=== PATIENT | female | born 1970 | race Caucasian/White ===

== ENCOUNTER 2016-12-28 09:22 | Inpatient (IN) | payer BC ==
[2016-12-20 10:52] LABS: HEMATOCRIT 40.8 % (36.0-48.0); HEMOGLOBIN 13.9 g/dL (12.0-16.0)
[2016-12-20 11:04] LABS: BUN (BLOOD UREA NITROGEN) 7 MG/DL (6-23); CHLORIDE, SERUM 102 MMOL/L (96-112); CO2 (CARBON DIOXIDE) 28 MMOL/L (24-34); CREATININE 0.72 MG/DL (0.55-1.02); GFR AFRICAN AMERICAN 116 ML/MIN (>=60); GFR NON AFRICAN AMERICAN 100 ML/MIN (>=60); GLUCOSE, SERUM 124 MG/DL (60-99); SODIUM, SERUM 140 MMOL/L (135-148)
--- NOTE | ~2016-12-28 | OP ---
Record Of Operation [facility] [address] [place]. [address] NAME: JOSEF OSBORN : [birth year] STATUS : ADM IN PAT#: [id number] AGE: 46 ADM/REG DATE : 12/28/16 MR#: [id number] REPORT SERV DATE: 12/28/16 DICTATED BY: CHARLES GALLAGHER DATE: 12/28/16 REPORT STATUS : Draft TRANSCRIBED BY: MODL DATE: 12/28/16 DATE OF PROCEDURE: 12/28/2016 PREOPERATIVE DIAGNOSIS: Cervical spondylotic myelopathy, cervical radiculopathy, C4-C7 disk disease and stenosis with spinal cord and nerve root impingement. POSTOPERATIVE DIAGNOSIS: Cervical spondylotic myelopathy, cervical radiculopathy, C4-C7 disk disease and stenosis with spinal cord and nerve root impingement. PROCEDURE: Two-stage procedure. Stage II: 1. Anterior cervical diskectomy and fusion, C4-5, C5-6, C6-7, C7-T1. 2. Placement of Medtronic PEEK interbody spacer, C4-5, C5-6, C6-7, C7-T1. 3. Allograft bone matrix. 4. Neuromonitoring. 5. Anterior cervical plate from Medtronic, C4-T1. 6. Operative microscope. Stage II: 1. C4-T1 laminectomy and bilateral foraminotomy, decompression of the C5-T1 nerve roots bilaterally. 2. C4-T1 posterolateral fusion bilaterally. 3. C4-T1 posterior segmental spinal instrumentation using Medtronic pedicle and lateral mass screws. 4. Local morcellized autograft and allograft bone matrix. 5. Neuromonitoring. 6. Intraoperative O-arm CT scan with computer navigation. SURGEON: Charles Gallagher DO. ANESTHESIA: General. ESTIMATED BLOOD LOSS: 100 mL. COMPLICATIONS: None. INDICATIONS: The patient is a 46-year-old with intractable neck and arm pain, upper extremity weakness, progressive signs of myelopathy, failed conservative treatment. After discussion of risks and benefits and prolonged neurologic decline, the patient elected to proceed with surgical intervention. PROCEDURE IN DETAIL: I identified the patient in the holding area. Consent was obtained. Went to the operating room. Underwent general anesthesia with endotracheal intubation. Prepped and draped in the usual sterile fashion. Operative safety pause was performed, and then we proceeded with surgery. An oblique incision was made over the left side of the neck, taken down to the anterior aspect of the spine. Longus colli elevated. Self- Record Of Operation [place] [address] [place]. [address] NAME: JOSEF OSBORN : [birth year] STATUS : ADM IN PAT#: [id number] AGE: 46 ADM/REG DATE : 12/28/16 MR#: [id number] REPORT SERV DATE: 12/28/16 DICTATED BY: CHARLES GALLAGHER DATE: 12/28/16 REPORT STATUS : Draft TRANSCRIBED BY: JOSE MARTIN DATE: 12/28/16 retaining retractors were placed. A Agra pin was placed and lateral fluoroscopic image used to verify operative level. Distraction was applied across the C4-C5 level. Operative microscope was brought in. A knife was used to perform an annulotomy. Free disk material removed with pituitary. Anterior osteophytes were removed with Kerrison. Posterior osteophytes and uncinate processes taken down with a zuleika bur foraminotomies performed with Kerrison. Endplates prepared with curettes, rasp, and a cutting bur. Trial spacers implanted, then Medtronic PEEK interbody spacer with allograft bone matrix placed at C4-C5. This was repeated again at C5-6, C6-7, and C7-T1. Agra pins were removed. Anterior cervical plate from Medtronic was placed from C4-T1. Screws were placed, final tightened. Locking mechanism engaged. Final AP and lateral images obtained. Irrigation performed. Hemostasis achieved. Subfascial drain placed. Layered closure was performed. Sterile dressings applied. The patient returned to the prone position, prepped and draped for stage II. Midline longitudinal incision was made at C4-T1, taken down to the fascial layer. Paraspinous muscles periosteally elevated. Self-retaining retractors were placed. O-arm registration frame was placed on spinous process. O-arm was brought in for intraoperative CT scan. Computer registration materials were verified under computer guidance. Pedicle and lateral mass screws from Medtronic were placed from C4-T1 bilaterally. The O-arm was brought back in to verify good placement of instrumentation. High-speed bur was used to create a trough in the lamina at C4-T1. Final cut through was made with a zuleika bur. Kerrison removed underlying ligamentum flavum. Lamina removed en bloc and used for bone graft. Foraminotomies performed from C4-T1 freeing the C5-T1 nerve roots bilaterally. Rods were cut and contoured to appropriate shape and length, placed over the screws from C4-T1. Set screws were placed and final tightened. A high-speed decorticating bur was used to decorticate the remaining bony surfaces at C4-T1. Irrigation performed. Hemostasis achieved. Local morcellized autograft and allograft bone matrix packed over the decorticated surfaces at C4-T1 bilaterally. Subfascial drain placed. Layered closure was performed. A gram of vancomycin powder sprinkled over the wound before closure. Sterile dressings applied. The patient awoke and extubated and taken to the recovery room in stable condition. OPERATIVE FINDING: Severe stenosis and disk disease C4-T1, no sustained neuromonitoring alerts. JIGNA/MODL Chalres Gallagher DO / [id number] CC: Charles Gallagher DO
--- NOTE | ~2016-12-28 | DS ---
Discharge Summary [facility] [address] [place]. [address] NAME: JOSEF OSBORN : [birth year] STATUS : DIS IN PAT#: [id number] AGE: 46 ADM/REG DATE : 12/28/16 MR#: [id number] REPORT SERV DATE: 01/09/17 DICTATED BY: CHARLES GALLAGHER DATE: 01/09/17 REPORT STATUS : Draft TRANSCRIBED BY: JOSE MARTIN DATE: 01/09/17 Data Collection from hospitalization DISCHARGE DIAGNOSES: 1. Cervical spondylotic myelopathy. 2. Cervical radiculopathy. 3. C4-C7 disk disease and stenosis with spinal cord and nerve root impingement. 4. Hypertension. 5. Anxiety and depression. 6. Hypercholesterolemia. 7. Gastric reflux. 8. Memory loss. 9. Tobacco use. CONSULTATIONS: None. PROCEDURES PERFORMED: Two-stage procedure. Stage I - anterior cervical diskectomy and fusion C4-C5, C5-C6, C6-C7, and C7-T1; placement of Medtronic PEEK interbody spacer C4-C5, C5-C6, C6-C7, and C7-T1; allograft bone matrix; neuromonitoring; anterior cervical plate from Medtronic C4-T1; operative microscope. Stage II - C4-T1 laminectomy and bilateral foraminotomy, decompression of the C5-T1 nerve roots bilaterally, C4-T1 posterolateral fusion bilaterally, C4-T1 posterior segmental spinal instrumentation using Medtronic pedicle and lateral mass screws, local morselized autograft and allograft bone matrix, neuromonitoring, intraoperative O-arm CT scan with computer navigation on 12/28/2016. PATHOLOGY: ( ). CONDITION AT DISCHARGE: Stable. DISPOSITION: The patient was discharged home on a mechanical soft diet with activities as instructed. She would follow up with me on 01/11/2017. HOSPITAL COURSE: This is a 46-year-old female who had intractable neck pain and right upper extremity pain with progressive problems with dropping objects and worsening balance. She has had multiple falls. Her legs would give out. She has cervical spondylotic myelopathy as well as cervical radiculopathy, C4-C7 disk disease and stenosis with spinal cord and nerve root impingement. Treatment options were discussed and it was elected to proceed with surgical intervention. She was admitted to the hospital for further evaluation and treatment. Upon admission, she was taken to the operating room where she underwent the above-mentioned procedure. She tolerated this well, and there were no complications. On postop day #1, her neck was soft. She was going to be transferred to the floor. She was stable neurologically. The ROBOT TECHNICIAN and Diaz catheter were going to be discontinued. On 12/30/2016, her pain was controlled. The drain was removed. Over the next couple of days, she continued to do well. She did complain of some pain. Discharge planning was performed. She remained on her metoprolol, trazodone, Prozac, and MS Contin. Blood pressure was stable. Discharge planning was performed. On 01/01/2017, discharge instructions were Discharge Summary [address] [address] NAME: JOSEF OSBORN : [birth year] STATUS : DIS IN PAT#: [id number] AGE: 46 ADM/REG DATE : 12/28/16 MR#: [id number] REPORT SERV DATE: 01/09/17 DICTATED BY: CHARLES GALLAGHER DATE: 01/09/17 REPORT STATUS : Draft TRANSCRIBED BY: JOSE MARTIN DATE: 01/09/17 given. Due to her improved and stable condition, she was discharged home with the above- stated instructions. Information collected by: Jazz Feliciano I submit the above information as my discharge summary. SAÚL/JOSE MARTIN Charles Gallagher DO / [id number] CC: DO Ta David M.D.
--- NOTE | ~2016-12-28 | PREOPHP ---
PreOp History and Physical [place] [id number] [facility] [place]. [address] NAME: JOSEF OSBORN : [birth year] STATUS : ADM IN [facility]#: [id number] AGE: 46 ADM/REG DATE : 12/28/16 MR#: [id number] REPORT SERV DATE: 12/28/16 DICTATED BY: CHARLES ANNE DATE: 12/28/16 REPORT STATUS : Draft TRANSCRIBED BY: JOSE MARTIN DATE: 12/28/16 CHIEF COMPLAINT: Neck pain. HISTORY OF PRESENT ILLNESS: The patient is a 46-year-old with intractable neck pain and right upper extremity pain with progressive problems with dropping objects and worsening balance. She has had multiple falls. Her legs will give out. After discussion of risks and benefits and progressive neurologic decline, she elected to proceed with surgical intervention. REVIEW OF SYSTEMS: She denies chest pain, shortness of breath, and bowel or bladder changes. ALLERGIES: DENIED. HOME MEDICATIONS: Include Valium, dicyclomine, fluoxetine, methylprednisolone, metoprolol, morphine, naproxen, omeprazole, Percocet, potassium, promethazine, tizanidine, trazodone, and venlafaxine. FAMILY HISTORY: Noncontributory. PAST MEDICAL HISTORY: Anxiety, hypertension, depression, high cholesterol, memory loss, and gastric reflux. PHYSICAL EXAMINATION: VITAL SIGNS: Height 5 feet 6 inches, weight 173, BMI 27.9. GENERAL: The patient is healthy appearing, no acute distress. PSYCHIATRIC: Alert and oriented x3. Normal mood and affect. Gait is somewhat unsteady. VASCULAR: No extremity swelling. SPINE: Decreased cervical motion. HEART: Regular rate and rhythm. LUNGS: Clear to auscultation. ABDOMEN: Soft, nontender, and nondistended. Good bowel sounds. BREASTS AND RECTAL: Both deferred. NEUROLOGIC: Strength is 4/5 for bilateral triceps and intrinsics. Remaining motor strength 5/5. IMAGING: I have reviewed the MRI scan, it does show C4-T1 disc disease and stenosis with spinal cord and nerve root compression. ASSESSMENT: C4-T1 disc disease and stenosis with cord and nerve compression, cervical radiculopathy, cervical myelopathy, failed conservative treatment including injections and physical therapy and pain management. After discussion of risks and benefits, the patient elects to proceed with surgical intervention. Consent was obtained. All questions were answered. She is ready to proceed. PreOp History and Physical [address] [facility] [place] [address] NAME: JOSEF OSBORN : [birth year] STATUS : ADM IN [facility]#: [id number] AGE: 46 ADM/REG DATE : 12/28/16 MR#: [id number] REPORT SERV DATE: 12/28/16 DICTATED BY: CHARLES ANNE DATE: 12/28/16 REPORT STATUS : Draft TRANSCRIBED BY: JOSE MARTIN DATE: 12/28/16 JIGNA/JOSE MARTIN Charles Anne DO / [id number] CC: DO Ta David M.D.
[~2016-12-28 09:22] MED LIST: CYANO1000T PO; LOP50 PO; MSCONT15 PO; PR25 PO; PRILOSEC40 MG PO; PROZAC PO; TRAZODONE150 MG PO; V5 PO; ZANAFLEX 4 MG TA4 MG PO
[2016-12-29 05:32] LABS: POTASSIUM, SERUM 3.9 MMOL/L (3.5-5.3)
[2017-01-01 04:52] LABS: BASOPHILS 0.1 %; BASOPHILS ABSOLUTE 0.02 10/3/uL (0.0-0.16); EOSINOPHILS 1.2 %; HEMATOCRIT 38.7 % (36.0-48.0); IMMATURE GRANULOCYTES 0.4 %; IMMATURE GRANULOCYTES ABSOLUTE 0.06 10/3/uL (0.0-0.11); LYMPHOCYTES 18.9 %; LYMPHOCYTES ABSOLUTE 3.07 10/3/uL (0.67-4.30); MEAN CORPUS HGB CONC 33.6 g/dL (32.0-36.0); MEAN CORPUSCULAR HEMOGLOB 30.9 pg (26.0-34.0); MEAN CORPUSCULAR VOLUME 91.9 fL (80-100); MEAN PLATELET VOLUME 11.1 fL (9.2-13.0); MONOCYTES 9.3 %; MONOCYTES ABSOLUTE 1.51 10/3/uL (0.21-1.20); NEUTROPHILS 70.1 %; NEUTROPHILS ABSOLUTE 11.38 10/3/uL (2.02-8.40); PLATELET COUNT 275 10/3/uL (150-400); RBC DISTRIBUTION WIDTH 13.7 % (12.0-16.0); RED CELL COUNT 4.21 10/6/uL (4.0-5.6); WHITE BLOOD CELLS 16.2 10/3/uL (4.5-10.5)
[2017-01-01 04:53] LABS: MANUAL DIFF NO %
[2017-01-01 05:03] LABS: CALCIUM, SERUM 8.8 MG/DL (8.5-10.4); CHLORIDE, SERUM 98 MMOL/L (96-112); CO2 (CARBON DIOXIDE) 30 MMOL/L (24-34); CREATININE 0.58 MG/DL (0.55-1.02); GFR AFRICAN AMERICAN 128 ML/MIN (>=60); GFR NON AFRICAN AMERICAN 111 ML/MIN (>=60); GLUCOSE, SERUM 112 MG/DL (60-99); POTASSIUM, SERUM 3.7 MMOL/L (3.5-5.3); SODIUM, SERUM 139 MMOL/L (135-148)
[2017-01-01 05:06] LABS: BUN (BLOOD UREA NITROGEN) 11 MG/DL (6-23)
[2017-01-01] MEDS ORDERED: PCET PO (10:31)
[2017-01-01] MEDS ORDERED: ZANAFLEX 4 MG TA4 MG PO (10:32)
== END 2017-01-01 13:02 | disposition home or self-care (01) | DRG 454 ==
LOC: SDC/OF 09:22 → PACU 17:45 → MIC 20:20 → 3SO 12-29 13:54
PROVIDERS: Nurse Practitioner; Orthopaedic Surgery
PROC: 0RG4071 Fusion of Cervicothoracic Vertebral Joint with Autologous Tissue Substitute, Posterior Approach, Posterior Column, Open Approach (ICD-10-PCS; 2016-12-28)
PROC: 0RB50ZZ Excision of Cervicothoracic Vertebral Disc, Open Approach (ICD-10-PCS; principal; 2016-12-28 11:45)
PROC: 0RG20A0 Fusion of 2 or more Cervical Vertebral Joints with Interbody Fusion Device, Anterior Approach, Anterior Column, Open Approach (ICD-10-PCS; 2016-12-28 11:45)
PROC: 0RG2071 Fusion of 2 or more Cervical Vertebral Joints with Autologous Tissue Substitute, Posterior Approach, Posterior Column, Open Approach (ICD-10-PCS; 2016-12-28 11:45)
PROC: 0RG40A0 Fusion of Cervicothoracic Vertebral Joint with Interbody Fusion Device, Anterior Approach, Anterior Column, Open Approach (ICD-10-PCS; 2016-12-28 11:45)
DX: M50.123 Cervical disc disorder at C6-C7 level with radiculopathy (principal); M50.023 Cervical disc disorder at C6-C7 level with myelopathy; I10 Essential (primary) hypertension; F41.9 Anxiety disorder, unspecified; F32.9 Major depressive disorder, single episode, unspecified; K21.9 Gastro-esophageal reflux disease without esophagitis
CPT/HCPCS: 76000; 80048; 80051; 82962; 85014; 85018; 85025; 87641; 88304; 88311; 93005; 97110-GP; 97116-GP; 97161-GP; A9270-GY; C1713; J0690; J1644; J2250; J2270; J2370; J2405; J2550; J2710; J3010; J3370